=== PATIENT | female | born 1970 | race Caucasian/White ===

== ENCOUNTER → 2019-07-11 17:32 | Outpatient (BNVA) | payer BC, SELFPAY | PROVIDERS: Visit Provider Nurse Practitioner | DX: Z12.4 Encounter for screening for malignant neoplasm of cervix (principal); F41.9 Anxiety disorder, unspecified; N95.2 Postmenopausal atrophic vaginitis | CPT/HCPCS: 87070; 88175 ==

== ENCOUNTER → 2019-07-17 08:19 | Outpatient (BNVA) | payer BC, SELFPAY | PROVIDERS: Visit Provider Nurse Practitioner | DX: M25.562 Pain in left knee (principal); M79.672 Pain in left foot | CPT/HCPCS: 73562; 73630; 80053; 84443; 85025 ==

== ENCOUNTER → 2020-02-03 08:57 | Outpatient (BNVA) | payer BC, SELFPAY | PROVIDERS: Visit Provider Nurse Practitioner | DX: F41.9 Anxiety disorder, unspecified (principal); N95.2 Postmenopausal atrophic vaginitis | CPT/HCPCS: 80053; 85025 ==

== ENCOUNTER → 2020-02-04 15:32 | Outpatient (BNVA) | payer BC, SELFPAY | PROVIDERS: Visit Provider Nurse Practitioner | DX: M54.5 Low back pain (principal); M54.2 Cervicalgia; F41.9 Anxiety disorder, unspecified; M54.9 Dorsalgia, unspecified; N95.2 Postmenopausal atrophic vaginitis; Z12.4 Encounter for screening for malignant neoplasm of cervix | CPT/HCPCS: 81000; 88175 ==

== ENCOUNTER → 2020-02-12 15:04 | Outpatient (BNVA) | payer BC, SELFPAY | PROVIDERS: Visit Provider Nurse Practitioner | DX: M54.2 Cervicalgia (principal); M54.9 Dorsalgia, unspecified; M41.82 Other forms of scoliosis, cervical region | CPT/HCPCS: 72040; 72072; 72100 ==

== ENCOUNTER → 2020-04-30 16:23 | Outpatient (BNVA) | payer OTHER, SELFPAY | PROVIDERS: Visit Provider Nurse Practitioner | DX: R87.610 Atypical squamous cells of undetermined significance on cytologic smear of cervix (ASC-US) (principal); F41.9 Anxiety disorder, unspecified; N95.2 Postmenopausal atrophic vaginitis; M53.9 Dorsopathy, unspecified | CPT/HCPCS: 88175 ==

== ENCOUNTER → 2020-07-23 16:33 | Outpatient (BNVA) | payer OTHER, SELFPAY | PROVIDERS: PCP Nurse Practitioner; Visit Provider Nurse Practitioner | DX: N95.2 Postmenopausal atrophic vaginitis (principal); F41.9 Anxiety disorder, unspecified; Z13.6 Encounter for screening for cardiovascular disorders; R87.610 Atypical squamous cells of undetermined significance on cytologic smear of cervix (ASC-US) | CPT/HCPCS: 80053; 80061 ==

== ENCOUNTER → 2020-08-26 15:18 | Outpatient (BNVA) | payer OTHER, SELFPAY | PROVIDERS: PCP Nurse Practitioner; Visit Provider Nurse Practitioner Family | DX: Z13.6 Encounter for screening for cardiovascular disorders (principal); F41.9 Anxiety disorder, unspecified; L03.211 Cellulitis of face; R59.1 Generalized enlarged lymph nodes | CPT/HCPCS: 80053; 80061 ==

== ENCOUNTER 2020-10-28 15:01 | Outpatient (CLI) | payer OTHER, SELFPAY ==
--- NOTE | 2020-10-28 15:13 | MM_ITS ---
WS: [id number] BILATERAL SCREENING DIGITAL MAMMOGRAM WITH CAD HISTORY: SCREENING COMPARISON: None available. Bilateral CC and MLO views submitted. Computer aided detection analyzed. Breast composition: There are scattered areas of fibroglandular density. No suspicious masses, microc alcifications or architectural distortion. Benign calcification in the anterior RIGHT breast. MM/[id number] IMPRESSION: BI-RADS: 2-Benign FOLLOW UP: 1 Year Follow-up
== END 2020-10-28 15:02 | disposition home or self-care (01) ==
LOC: RADSHAW 15:10
PROVIDERS: PCP Nurse Practitioner; Visit Provider Nurse Practitioner
DX: Z12.31 Encounter for screening mammogram for malignant neoplasm of breast (principal)
CPT/HCPCS: 77067

== ENCOUNTER → 2021-01-14 16:48 | Outpatient (BNVA) | payer OTHER, SELFPAY | PROVIDERS: PCP Nurse Practitioner; Visit Provider Nurse Practitioner | DX: Z13.6 Encounter for screening for cardiovascular disorders (principal) | CPT/HCPCS: 80053; 80061 ==

== ENCOUNTER → 2021-07-08 16:47 | Outpatient (BNVA) | payer OTHER, SELFPAY | PROVIDERS: PCP Nurse Practitioner; Visit Provider Nurse Practitioner | DX: M53.9 Dorsopathy, unspecified (principal); F41.9 Anxiety disorder, unspecified | CPT/HCPCS: 80053 ==

== ENCOUNTER → 2022-01-04 08:30 | Outpatient (BNVA) | payer OTHER, SELFPAY | PROVIDERS: PCP Nurse Practitioner; Visit Provider Nurse Practitioner | DX: F41.9 Anxiety disorder, unspecified (principal); E66.9 Obesity, unspecified | CPT/HCPCS: 80053; 80061; 85025 ==

== ENCOUNTER 2022-01-12 14:27 | Outpatient (CLI) | payer OTHER, SELFPAY ==
--- NOTE | 2022-01-12 14:40 | MM_ITS ---
WS: [id number] VIEWS: MLO and CC views both breasts. 3D digital tomosynthesis is also included in this exam. Comparison made with prior exam of 10/28/2020.. Findings: There was no sign of mass, architectural distortion or suspicious calcification in either breast. Fa tty MM/[place] [id number] Impression: BI-RADS: 1-Negative FOLLOW-UP: 1 Year Follow-up This mammogram was also analyzed by the Computer Aided Detection System [employer].
== END 2022-01-12 14:28 | disposition home or self-care (01) ==
PROVIDERS: PCP Nurse Practitioner; Visit Provider Nurse Practitioner
DX: Z12.31 Encounter for screening mammogram for malignant neoplasm of breast (principal)
CPT/HCPCS: 77063; 77067

== ENCOUNTER → 2022-07-07 16:53 | Outpatient (BNVA) | payer OTHER, SELFPAY | PROVIDERS: PCP Nurse Practitioner; Visit Provider Nurse Practitioner | DX: F41.9 Anxiety disorder, unspecified (principal); M53.9 Dorsopathy, unspecified; E55.9 Vitamin D deficiency, unspecified | CPT/HCPCS: 80053; 80061; 82306 ==

== ENCOUNTER → 2023-01-04 08:21 | Outpatient (BNVA) | payer OTHER, SELFPAY | PROVIDERS: PCP Nurse Practitioner; Visit Provider Nurse Practitioner | DX: Z13.6 Encounter for screening for cardiovascular disorders (principal); F41.9 Anxiety disorder, unspecified; E55.9 Vitamin D deficiency, unspecified | CPT/HCPCS: 80053; 80061; 82306; 82607; 84443 ==

== ENCOUNTER → 2023-07-26 16:16 | Outpatient (BNVA) | payer OTHER, SELFPAY | PROVIDERS: PCP Nurse Practitioner; Visit Provider Nurse Practitioner | DX: Z12.4 Encounter for screening for malignant neoplasm of cervix (principal) | CPT/HCPCS: 88175 ==

== ENCOUNTER 2023-10-10 15:56 | Outpatient (CLI) | payer OTHER, SELFPAY ==
--- NOTE | 2023-10-10 16:00 | MM_ITS ---
WS: [id number] BILATERAL 3D TOMOSYNTHESIS DIGITAL SCREENING MAMMOGRAM WITH CAD CLINICAL INFORMATION: Z12.31 - Encounter for screening mammogram for malignant ... HISTORY: Screening mammogram. No current complaints. COMPARISON: 2021 TECHNIQUE: Bilateral CC and MLO views. FINDINGS: Fatty-replaced breasts bilaterally. 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 No evidence of malignancy. A few incidental punctate calcifications. MM/[place] [id number] IMPRESSION: BI-RADS: 2-Benign FOLLOW UP: 1 Year Follow-up Recommend return to annual screening mammography.
== END 2023-10-10 15:57 | disposition home or self-care (01) ==
LOC: MOBLMAM 16:04
PROVIDERS: PCP Nurse Practitioner; Visit Provider Nurse Practitioner
DX: Z12.31 Encounter for screening mammogram for malignant neoplasm of breast (principal); R92.313 Mammographic fatty tissue density, bilateral breasts; R92.1 Mammographic calcification found on diagnostic imaging of breast
CPT/HCPCS: 77063; 77067

== ENCOUNTER → 2024-02-14 15:51 | Outpatient (BNVA) | payer OTHER, SELFPAY | PROVIDERS: PCP Nurse Practitioner; Visit Provider Nurse Practitioner | DX: Z13.6 Encounter for screening for cardiovascular disorders (principal); F41.9 Anxiety disorder, unspecified; J06.9 Acute upper respiratory infection, unspecified; R87.610 Atypical squamous cells of undetermined significance on cytologic smear of cervix (ASC-US) | CPT/HCPCS: 80053; 80061; 84443; 85025; 88175 ==

== ENCOUNTER → 2024-04-23 15:36 | Outpatient (BNVA) | payer OTHER, SELFPAY | PROVIDERS: PCP Nurse Practitioner; Visit Provider Obstetrics & Gynecology | DX: Z78.0 Asymptomatic menopausal state (principal) | CPT/HCPCS: 76830 ==

== ENCOUNTER → 2024-10-23 16:53 | Outpatient (BNVA) | payer OTHER, SELFPAY | PROVIDERS: PCP Nurse Practitioner; Visit Provider Nurse Practitioner | DX: R39.9 Unspecified symptoms and signs involving the genitourinary system (principal) | CPT/HCPCS: 81000 ==

== ENCOUNTER → 2024-10-30 16:45 | Outpatient (BNVA) | payer OTHER, SELFPAY | PROVIDERS: PCP Nurse Practitioner; Visit Provider Nurse Practitioner | DX: Z12.4 Encounter for screening for malignant neoplasm of cervix (principal) | CPT/HCPCS: 88175 ==

== ENCOUNTER 2025-01-13 13:34 | Outpatient (CLI) | payer OTHER, SELFPAY ==
--- NOTE | 2025-01-13 13:38 | USR_ITS ---
PROCEDURE INFORMATION: Exam: US Pelvis Transabdominal, Complete, and US Pelvis Transvaginal, and US Duplex Artery and Vein, Ovaries, Complete, Non-obstetric Exam date and time: 01/13/2025 2:29 PM Age: 54 years old Clinical indication: Abnormal findings; Abnormal imaging test; Additional info: Abnormal findings on diagnostic imaging, prior history of vaginal atrophy, postmenopausal, and endometrial thickening TECHNIQUE: Imaging protocol: Real-time complete transabdominal and transvaginal pelvic ultrasound (non-obstetric) with image documentation. Transvaginal imaging was used for better evaluation of the endometrium, adnexa, and/or cervix. Real-time duplex ultrasound scan of the arterial and venous flow of the ovaries with B-mode, color Doppler flow and spectral waveform analysis. Duplex exam was performed to evaluate for torsion and other vascular conditions. COMPARISON: US transvaginal [id number] 04/23/2024 3:43 PM FINDINGS: Uterus: The uterus is anteverted. The uterus measures 5.4 x 3.4 x 3.6 cm. The endometrial bilayer measures 1.7 cm. Right ovary/adnexa: The right ovary is poorly characterized on this exam, likely obscured secondary to positioning and bowel gas. Left ovary/adnexa: The left ovary measures 1.4 x 1.3 x 1.4 cm with a volume of 2 mL. Confirmed left ovarian blood flow. Normal arterial inflow on spectral sonography. Peak systolic velocity of 9.7 cm/sec with RI of 0.63. Confirmed left ovarian blood flow. Normal venous outflow on spectral sonography. Intraperitoneal space: No free pelvic fluid. Urinary bladder: Poorly characterized. Other findings: Limited characterization of the uterus and adnexa on transabdominal evaluation secondary to bowel gas, necessitating transvaginal evaluation. US/US pelv w/transvag [id number] IMPRESSION: 1. Endometrial thickening measuring up to 1.7 cm, previously 1.5 cm. Underlying malignancy must be excluded in a postmenopausal patient. 2. Nonvisualized right ovary. No evidence of adnexal mass. No spectral evaluation of the right ovarian vasculature was performed. 3. Arterial and venous blood flow confirmed to the left ovary. No evidence of vascular abnormality or torsion.
--- NOTE | 2025-01-13 13:38 | MM_ITS ---
WS: [id number] BILATERAL 3D TOMOSYNTHESIS DIGITAL SCREENING MAMMOGRAPHY WITH CAD CLINICAL INFORMATION: SCREENING HISTORY: Screening mammogram. No current complaints. COMPARISON: None. TECHNIQUE: Bilateral CC and MLO views. FINDINGS: Scattered fibroglandular densities bilaterally. No suspicious focal mass, asymmetry, calcifications, or architectural distortion. No evidence of malignancy. A few incidental punctate calcifications. MM/MM scr tomosynthesis [id number] IMPRESSION: DENSITY: There are scattered areas of fibroglandular density. BI-RADS: 2 - Benign. FOLLOW UP: 1 Year Follow-up Recommend return to annual screening mammography.
== END 2025-01-13 13:35 | disposition home or self-care (01) ==
LOC: RAD 13:35
PROVIDERS: PCP Nurse Practitioner; Visit Provider Nurse Practitioner
DX: Z12.31 Encounter for screening mammogram for malignant neoplasm of breast (principal); R92.323 Mammographic fibroglandular density, bilateral breasts; R92.1 Mammographic calcification found on diagnostic imaging of breast; R93.89 Abnormal findings on diagnostic imaging of other specified body structures
CPT/HCPCS: 76830; 76856; 77063; 77067